=== PATIENT | male | born 1950 | race Caucasian/White ===

== ENCOUNTER 2017-10-01 16:37 | Emergency (ER) | payer OTHER ==
[2017-10-01 16:38] VITALS: BMI 25.9
[2017-10-01 16:45] VITALS: TEMP 98.4
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
[2017-10-01 17:58] LABS: ALB/GLOB RATIO 1.2 (1.0-2.1); ALBUMIN 4.2 g/dL (3.5-5.0); ALT/SGPT 48 U/L (21-72); AST/SGOT 31 U/L (17-59); BASO # 0.1 K/uL (0.0-0.2); BASO % 0.6 % (0.0-2.0); BLOOD UREA NITROGEN 17 mg/dl (9-20); CALCIUM 9.8 mg/dL (8.4-10.2); EOS # 0.2 K/uL (0.0-0.7); EOS % 2.3 % (0.0-4.0); GFR AFRICAN-AMERICAN > 60; GFR NON-AFRICAN AMERICAN > 60; HEMOGLOBIN 13.6 g/dL (12.0-18.0); LYMPH # 2.3 K/uL (1.0-4.3); LYMPH % 21.6 % (20.0-40.0); MEAN CELL VOLUME 84.7 fl (80.0-94.0); MEAN CORPUSCULAR HEMOGLOBIN 29.4 pg (27.0-31.0); MEAN CORPUSCULAR HGB CONC 34.7 g/dL (33.0-37.0); MEAN PLATELET VOLUME 7.9 fl (7.2-11.7); MONO # 0.7 K/uL (0.0-0.8); MONO % 6.6 % (0.0-10.0); NEUT # 7.4 K/uL (1.8-7.0); NEUT % 68.9 % (50.0-75.0); NRBC % 0.1 % (0.0-0.0); RBC 4.62 Mil/uL (4.40-5.90); RED CELL DISTRIBUTION WIDTH 13.5 % (11.5-14.5); WHITE BLOOD COUNT 10.7 K/uL (4.8-10.8)
[2017-10-01 18:07] LABS: INR 1.1 (0.9-1.2); PARTIAL THROMBOPLASTIN TIME 21.1 Seconds (25.6-37.1); PROTHROMBIN TIME 11.8 Seconds (9.8-13.1)
[2017-10-01] MEDS ORDERED: Iohexol 300 100 ML IJ ONE (18:18)
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
[2017-10-01 20:21] VITALS: BP 128/88; PULSE 69; RESP 16
[2017-10-01 20:55] VITALS: O2SAT 98
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
--- NOTE | 2017-10-02 09:21 | CARD ---
APPROVED REPORT EKG Measurement Heart [id number] <Conclusion> Sinus rhythm with premature supraventricular complexes Moderate voltage criteria for LVH, may be normal variant Borderline ECG
== END 2017-10-01 21:55 | disposition short-term general hospital (02) ==
LOC: H.ER 16:37
DX: S36.09XA Other injury of spleen, initial encounter (principal); V03.10XA Pedestrian on foot injured in collision with car, pick-up truck or van in traffic accident, initial encounter; Y92.410 Unspecified street and highway as the place of occurrence of the external cause; E78.00 Pure hypercholesterolemia, unspecified; I49.1 Atrial premature depolarization; J43.9 Emphysema, unspecified; Z79.82 Long term (current) use of aspirin
CPT/HCPCS: 71045; 71260; 73030; 74177; 80053; 85025; 85610; 85730; 86850; 86900; 93005; 96374; 99285; J2270; Q9967